=== PATIENT | female | born 2005 | race Caucasian/White ===

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

== ENCOUNTER 2024-02-11 10:56 | Emergency (ER) | payer OTHER, SELFPAY ==
[2024-02-11 11:22] VITALS: BP 101/60; PULSE 113; RESP 20; TEMP 36.9; O2SAT 100
--- NOTE | 2024-02-11 11:35 | ED.GENADULT ---
HPI - General Adult General Chief complaint: Upper Respiratory Infection Stated complaint: congested,throat pain,bodyaches Time Seen by Provider: 02/11/24 11:35 Source: patient Mode of arrival: ambulatory Limitations: no limitations History of Present Illness HPI narrative: 18-year-old female patient presents to the [facility] with complaints of cold symptoms for the past 2 days. Patient states she has had a slight irritation to the throat, a lot of congestion and drainage. Denies any chest pain or shortness of breath. Denies any coughing. Denies any abdominal pain, nausea, vomiting or diarrhea. Patient states she has taken [id number] ibuprofen for her symptoms. Related Data Home Medications Medication Instructions Recorded Confirmed Control Pills 1 tablet PO DAILY 09/09/23 09/09/23 hydroxyzine HCl 10 mg tablet mg 02/11/24 Allergies Allergy/AdvReac Type Severity Reaction Status Date / Time No Known Allergies Allergy Verified 09/09/23 18:43 Review of Systems Review of Systems: CONSTITUTIONAL: Denies fever, positive chills, or sweats. EYES: Denies visual changes, redness, or discharge. ENT: Positive rhinorrhea, congestion, sore throat, denies otalgia. CARDIOVASCULAR: Denies chest pain, palpitations, or edema. RESPIRATORY: Denies cough or dyspnea. GASTROINTESTINAL: Denies abdominal pain, nausea, vomiting, or diarrhea. GENITOURINARY: Denies dysuria or hematuria. SKIN: Denies rash or itching. MUSCULOSKELETAL: Denies back pain, joint pain, or myalgia. NEUROLOGIC: Denies headache, numbness, or weakness. PSYCHIATRIC: Denies anxiety or depression. PMFSH Past Medical History Medical History Anxiety and depression COVID-19 Surgical History Surgical History No significant past surgical history Social History Social History Gender identity (if verbalized by the patient): Female Comments At the time of my signature I agree with nursing past medical history, surgical, social, and family history. There is no relevant family history pertinent to the presenting complaint. Exam Narrative: GENERAL: Well-appearing, well-nourished, and in no acute distress. HEAD: Normocephalic, atraumatic. EYES: PERRLA and EOMI. ENT: Nares with erythema edema noted bilaterally, no rhinorrhea or epistaxis. Mucous membranes moist. Posterior pharynx with no erythema, tonsillar enlargement, exudates or lesions present. Bilateral TMs are clear no erythema or foreign bodies the canal. NECK: Supple. No lymphadenopathy CHEST: Clear to auscultation. No respiratory distress. HEART: Regular rate and rhythm. No murmur heard. Normal peripheral pulses. ABDOMEN: Soft, nontender, nondistended, normal active bowel sounds. EXTREMITIES: Normal range of motion. No edema. SKIN: Warm, dry, no rash. NEURO: No focal deficits. Alert and oriented x3. Course Course Level of Care: Express Care Visit Vital Signs Vital signs: Vital Signs Temperature 36.9 C 02/11/24 11:22 Pulse Rate 113 H 02/11/24 11:22 Respiratory Rate 20 02/11/24 11:22 Blood Pressure 101/60 02/11/24 11:22 Pulse Oximetry 100 02/11/24 11:22 Oxygen Delivery Room Air 02/11/24 11:22 Temperature 36.9 C 02/11/24 11:22 Pulse Rate 113 H 02/11/24 11:22 Respiratory Rate 20 02/11/24 11:22 Blood Pressure 101/60 02/11/24 11:22 Pulse Oximetry 100 02/11/24 11:22 Oxygen Delivery Room Air 02/11/24 11:22 Vital signs reviewed Medical Decision Making MDM Narrative Medical decision making narrative: Discussed patient that her point of care swabs for influenza COVID and strep were all negative today we will send out the. Strep swab to the lab for a culture. Discussed with patient that if the culture does come back positive we will call her in antibiotics at that time. Disc
[2024-02-11 11:49] LABS: EDINFLUASCREEN Negative; EDINFLUBSCREEN Negative; EDSTREPNEGPOS1 Presumptive Negative
== END 2024-02-11 11:52 | disposition home or self-care (01) ==
PROVIDERS: Emergency Provider Nurse Practitioner Family
DX: J06.9 Acute upper respiratory infection, unspecified (principal); Z86.16 Personal history of COVID-19; Z20.822 Contact with and (suspected) exposure to COVID-19
CPT/HCPCS: 87081; 87426; 87804; 87880; 99213; G0463

== ENCOUNTER 2024-04-19 09:32 | Emergency (ER) | payer OTHER, SELFPAY ==
[2024-04-19 09:41] VITALS: BP 104/73; PULSE 105; RESP 16; TEMP 37.1; O2SAT 100
--- NOTE | 2024-04-19 10:12 | ED.ABDPAIN ---
HPI - Abdominal Pain General Chief Complaint: Abdominal Pain Stated Complaint: Lower Abdomen Pain Time Seen by Provider: 04/19/24 10:13 Source: patient Mode of arrival: ambulatory Limitations: no limitations History of Present Illness HPI narrative: 19-year-old female presents with complaint, pain with urination for 2-3 days. Patient reports right lower quadrant abdominal pain starting Last night. Denies urinary frequency, urgency. Reports right lower abdominal pain resolved today. No concern for STI. Patient gets Depo shot, does not have monthly periods. Denies concern for . All systems reviewed and negative except as noted above. Related Data Home Medications Medication Instructions Recorded Confirmed hydroxyzine HCl 25 mg tablet 25 mg PO TID PRN Anxiety 04/19/24 04/19/24 medroxyprogesterone 150 mg/mL 150 mg IM [id number] 04/19/24 04/19/24 intramuscular syringe Allergies Allergy/AdvReac Type Severity Reaction Status Date / Time No Known Allergies Allergy Verified 04/19/24 09:43 Review of Systems Review of Systems: CONSTITUTIONAL: Denies fever, chills, or sweats. EYES: Denies visual changes, redness, or discharge. ENT: Denies rhinorrhea, congestion, sore throat, or otalgia. CARDIOVASCULAR: Denies chest pain, palpitations, or edema. RESPIRATORY: Denies cough or dyspnea. GASTROINTESTINAL: Reports right lower abdominal pain, nausea. Denies vomiting, or diarrhea. GENITOURINARY: Denies dysuria or hematuria. SKIN: Denies rash or itching. MUSCULOSKELETAL: Denies back pain, joint pain, or myalgia. NEUROLOGIC: Denies headache, numbness, or weakness. PSYCHIATRIC: Denies anxiety or depression. All other systems reviewed are negative, except as documented in HPI. [facility] Past Medical History Medical History Anxiety and depression COVID-19 Surgical History Surgical History No significant past surgical history Social History Social History Gender identity (if verbalized by the patient): Female Comments At time of signature, agree with nursing past medical, surgical, social and family history. There is no relevant family history pertinent to the presenting complaint. Exam Narrative: GENERAL: This is a well-nourished, well-developed patient, in no apparent distress. HEAD: normocephalic, atraumatic. EYES: PERRL. Sclera clear/white. Vision is grossly intact. EARS: External ears normal NOSE: External nose normal NECK: Neck supple, non-tender without lymphadenopathy, masses or thyromegaly. CARDIOVASCULAR: Regular rate and rhythm without murmurs, gallops, or rubs. RESPIRATORY: Clear to auscultation. Breath sounds equal bilaterally. No wheezes, rales, or rhonchi. GASTROINTESTINAL: Abdomen soft, non-tender, nondistended. Bowel sounds are active. No hepato-splenomegaly, or palpable masses. No guarding. SKIN: warm, Dry, intact with no suspicious lesions or rash, good texture and turgor. NEURO: awake, alert, and oriented to person, place and time. There were no obvious focal neurologic abnormalities. EXTREMITIES: No joint tenderness, effusion, or edema noted. Course Course Level of Care: Express Care Visit Vital Signs Vital signs: Vital Signs Temperature 37.1 C 04/19/24 09:41 Pulse Rate 105 H 04/19/24 09:41 Respiratory Rate 16 04/19/24 09:41 Blood Pressure 104/73 04/19/24 09:41 Pulse Oximetry 100 04/19/24 09:41 Oxygen Delivery Room Air 04/19/24 09:41 Temperature 37.1 C 04/19/24 09:41 Pulse Rate 105 H 04/19/24 09:41 Respiratory Rate 16 04/19/24 09:41 Blood Pressure 104/73 04/19/24 09:41 Pulse Oximetry 100 04/19/24 09:41 Oxygen Delivery Room Air 04/19/24 09:41 reviewed MDM - Abdominal Pain MDM Narrative Medical decision making narrative: Patient is aware of diagnos
[2024-04-19 10:36] LABS: EDUAAPPEAR Clear; EDUABILI Negative (Negative); EDUABLOOD Trace (Negative); EDUACOLOR1 Yellow; EDUAGLUCOSE Negative (Negative); EDUAKETONE Negative (Negative); EDUALEUKO 1+ (Negative); EDUANITRATE Negative (Negative); EDUAPROTEIN Negative (Negative); EDUAUROBILI 0.2
== END 2024-04-19 11:12 | disposition home or self-care (01) ==
PROVIDERS: Emergency Provider Nurse Practitioner Family
DX: N39.0 Urinary tract infection, site not specified (principal); F41.9 Anxiety disorder, unspecified; Z86.16 Personal history of COVID-19
CPT/HCPCS: 81003; 87086; 87088; 99213; G0463

== ENCOUNTER 2025-01-22 10:28 | Emergency (ER) | payer OTHER, SELFPAY ==
--- NOTE | ~2025-01-22 | XR_ITS ---
EXAM/PROCEDURE: XR chest 2V - 01/22/2025 11:45 CDT HISTORY: 19 years old Female with SOA TECHNIQUE: Two view(s) of the chest. COMPARISON: None available. FINDINGS: LUNGS/ PLEURA: No focal consolidation. No appreciable pneumothorax or large pleural effusion. HEART/ MEDIASTINUM: Heart appears normal in size. BONES: No acute osseous abnormality. OTHER: Visualized upper abdomen is unremarkable. IMPRESSION: No acute process. Reviewed, dictated and finalized at location A. IMPRESSION: No acute process.
[2025-01-22 10:32] VITALS: BP 116/80; PULSE 85; RESP 18; TEMP 36.8; O2SAT 100
[2025-01-22] MEDS: SODIUM CHLORIDE 0.9% IV 1,000 ML 999 ML IV CONT (11:05)
[2025-01-22] MEDS: ONDANSETRON INJ 4 MG/2 ML VIAL IV PUSH (11:05)
[2025-01-22 11:14] LABS: Basophils Absolute Auto 0.1 K/mm3 (0.0-0.1); Basophils Percent Auto 0.7 % (0.2-1.2); Eosinophils Percent Auto 0.2 % (0-4.4); Hematocrit 38.5 % (37.0-47.0); Hemoglobin 13.3 g/dL (12.0-15.0); Immature Granulocyte Absolute 0.02 K/mm3 (0.00-0.031); Immature Granulocyte Percent A 0.2 % (0-0.5); Lymphocytes Absolute Auto 1.62 K/mm3 (0.9-3.2); Lymphocytes Percent Auto 18.9 % (18.3-44.2); Mean Corpuscular HGB Conc 34.5 g/dl (32-36); Mean Corpuscular Hemoglobin 31.3 pg (26-34); Mean Corpuscular Volume 90.6 fl (80-100); Mean Platelet Volume 9.1 fl (7.4-10.4); Monocytes Absolute Auto 0.5 K/mm3 (0.1-0.6); Monocytes Percent Auto 6.2 % (2.6-8.5); Neutrophils Absolute Auto 6.3 K/mm3 (1.3-6.7); Neutrophils Percent Auto 73.8 % (45.5-73.1); Platelet Count Result 286 k/mm3 (150-375); Red Blood Count 4.25 M/mm3 (4.2-5.4); Red Cell Distribution Width 12.3 % (11.5-14.5); White Blood Count 8.6 K/mm3 (4.5-10.0)
[2025-01-22 11:18] LABS: Add Urine Microscopic? NO; Appearance Urine Clear (Clear); Bilirubin Urine Negative (Negative); Blood Urine Negative (Negative); Color Urine Yellow (Yellow); Glucose Urine UA Negative (Negative); Ketones Urine 2+ mg/dL (Negative); Leukocyte Esterase Ur Negative LEU/UL (Negative); Nitrate Urine Negative (Negative); Protein Urine Negative (Negative); Specific Grav Ur 1.017 (1.001-1.035)
[2025-01-22 11:25] LABS: Alanine Aminotransferase 18 U/L (6-35); Albumin Level 4.4 g/dL (3.5-5.1); Alkaline Phosphatase 108 U/L (38-126); Anion Gap 13 mmol/L (4-12); Aspartate Amino Transferase 24 U/L (14-36); Bilirubin,Total 0.7 mg/dL (0.2-1.3); Blood Urea Nitrogen 8 mg/dL (7-17); Calcium 10.4 mg/dL (8.4-10.2); Carbon Dioxide 17 mmol/L (22-30); Chloride 112 mmol/L (98-107); Estimated CRCL calculation 91 ml/min; Estimated Glomerular Filt Rate > 60; Glucose 109 mg/dL (65-110); Lipase 36 U/L (23-300); Potassium 3.4 mmol/L (3.4-5.0); Sodium 142 mmol/L (137-145)
[2025-01-22] MEDS: hydrOXYzine HCL 25 MG TABLET PO (11:44)
--- NOTE | 2025-01-22 12:14 | ED_ITS ---
HPI - General Adult General Chief complaint: Anxiety Stated complaint: anxiety/dehydration Time Seen by Provider: 01/22/25 10:28 History of Present Illness HPI narrative: Patient is a 19-year-old female who presents ER with anxiousness. Patient had been smoking some marijuana last night and had adverse reaction or she is vomiting regularly. She again had some similar feeling this morning and thought she should come to the emergency room. She tried taking hydroxyzine without significant improvement. She has no chest pain at this time. No abdominal discomfort. She feels like she is dehydrated. No urinary symptoms. Related Data Home Medications ?Medication ?Instructions ?Recorded ?Confirmed ?Last Taken ?Type hydroxyzine HCl 25 mg tablet 25 mg PO TID PRN Anxiety 04/19/24 04/19/24 Unknown History medroxyprogesterone 150 mg/mL 150 mg IM [id number] 04/19/24 04/19/24 Unknown History intramuscular syringe Allergies Allergy/AdvReac Type Severity Reaction Status Date / Time No Known Allergies Allergy Unverified 01/22/25 10:29 Review of Systems 2 Review of Systems: All systems reviewed & are unremarkable except as noted in HPI and below Constitutional: Constitutional: Reports no additional constitutional complaints ENT: Reports system reviewed and no additional complaints, except as documented Cardiovascular: Cardiovascular: Reports no additional cardiovascular complaints Respiratory: Respiratory: Reports no additional respiratory complaints Genitourinary: Genitourinary: Reports no additional female genitourinary complaints Musculoskeletal: Musculoskeletal: Reports no additional musculoskeletal complaints Integumentary/Breasts: Skin/Breast: Reports system reviewed and no additional complaints, except as docu PMFSH Past Medical History Medical History Anxiety and depression COVID-19 Surgical History Surgical History No significant past surgical history Social History Social History Substance use type: marijuana Gender identity (if verbalized by the patient): Female Exam 2 Narrative: GENERAL: Well-appearing, well-nourished, and in no acute distress. HEAD: Normocephalic, atraumatic. ENT: Mucous membranes moist. CHEST: Clear to auscultation. No respiratory distress. HEART: Regular rate and rhythm. Normal peripheral pulses. ABDOMEN: Soft, nontender, nondistended. EXTREMITIES: Normal range of motion. No edema. SKIN: Warm, dry, no rash. NEURO: Alert and oriented x3. PSYCH: Normal mood and affect. Course Course Emergency Course: Labs with 2+ ketones, normal glucose and will sodium/potassium. White count hemoglobin normal. Has receive some hydroxyzine here but still feels anxious and occasionally nauseous. No vertigo. 1339: Patient feels much better after Phenergan and Ativan. Appropriate for discharge home. Vital Signs Vital signs: Vital Signs Temperature 98.3 F 01/22/25 10:32 Pulse Rate 85 01/22/25 10:32 Respiratory Rate 18 01/22/25 10:32 Blood Pressure 116/80 01/22/25 10:32 Pulse Oximetry 100 01/22/25 10:32 Oxygen Delivery Room Air 01/22/25 10:32 Temperature 98.3 F 01/22/25 10:32 Pulse Rate 85 01/22/25 10:32 Respiratory Rate 18 01/22/25 10:32 Blood Pressure 116/80 01/22/25 10:32 Pulse Oximetry 100 01/22/25 10:32 Oxygen Delivery Room Air 01/22/25 10:32 Medical Decision Making Vital Signs Vital Signs: Vital Signs Temperature 98.3 F 01/22/25 10:32 Pulse Rate 85 01/22/25 10:32 Respiratory Rate 18 01/22/25 10:32 Blood Pressure 116/80 01/22/25 10:32 Pulse Oximetry 100 01/22/25 10:32 Oxygen Delivery Room Air 01/22/25 10:32 Temperature 98.3 F 01/22/25 10:32 Pulse Rate 85 01/22/25 10:32 Respiratory Rate 18 01/22/25 10:32 Blood Pressure 116/80 01/22/25 10:32 Pulse Oximetry 100 01/22/25 10:32 Oxygen Delivery Room Air 01/22/25 10:32 Lab Data 01/22/25 10:59 01/22/25 10:59 Labs: Lab Results 01/22/25 Range/Units 10:59 WBC 8.6 (4.5-10.0) K/mm3 RBC 4.25 (4.2-5.4) M/mm3 Hgb 13.3 (12.0-15.0) g/dL Hct 38.5 (37.0-47.0) % MCV 90.6 (80-100) fl MCH 31.3 (26-34) pg MCHC 34.5 (32-36) g/dl RDW 12.3 (11.5-14.5) % Plt Count 286 (150-375) k/mm3 MPV 9.1 (7.4-10.4) fl Immature Gran % (Auto) 0.2 (0-0.5) % Neut % (Auto) 73.8 H (45.5-73.1) % Lymph % (Auto) 18.9 (18.3-44.2) % [place] % (Auto) 6.2 (2.6-8.5) % Eos % (Auto) 0.2 (0-4.4) % Baso % (Auto) 0.7 (0.2-1.2) % Lymph # (Auto) 1.62 (0.9-3.2) K/mm3 [place] # (Auto) 0.5 (0.1-0.6) K/mm3 Eos # (Auto) 0.0 (0-0.3) K/mm3 Baso # (Auto) 0.1 (0.0-0.1) K/mm3 Abs Immat Gran (auto) 0.02 (0.00-0.031) K/mm3 Absolute Neuts (auto) 6.3 (1.3-6.7) K/mm3 Absolute Nucleated RBC 0.000 (0.0-0.012) K/mm3 Nucleated RBC % 0.0 (0.0-0.2) % Sodium 142 (137-145) mmol/L Potassium 3.4 (3.4-5.0) mmol/L Chloride 112 H (98-107) mmol/L Carbon Dioxide 17 L (22-30) mmol/L Anion Gap 13 H (4-12) mmol/L BUN 8 (7-17) mg/dL Creatinine 0.67 L (0.7-1.0) mg/dL Estim Creat Clear Calc 91 ml/min Estimated GFR > 60 (59 - ) Glucose 109 (65-110) mg/dL Calcium 10.4 H (8.4-10.2) mg/dL Magnesium 2.0 (1.6-2.3) mg/dL Total Bilirubin 0.7 (0.2-1.3) mg/dL AST 24 (14-36) U/L ALT 18 (6-35) U/L Alkaline Phosphatase 108 (38-126) U/L Total Protein 7.0 (6.3-8.2) g/dL Albumin 4.4 (3.5-5.1) g/dL Lipase 36 (23-300) U/L Urine Color Yellow (Yellow) Urine Appearance Clear (Clear) Urine pH 7.0 (5.0-9.0) Ur Specific [place] 1.017 (1.001-1.035) Urine Protein Negative (Negative) mg/dL Urine Glucose (UA) Negative (Negative) mg/dL Urine Ketones 2+ H (Negative) mg/dL Ur Blood (Man) Negative (Negative) Urine Nitrate Negative (Negative) Urine Bilirubin Negative (Negative) Urine Urobilinogen 1.0 (<2.0) mg/dL Leukocyte Esterase Rfl Negative (Negative) NAOMI/UL Urine Opiates Screen Negative (Negative) Urine Methadone Screen Negative (Negative) Ur Barbiturates Screen Negative (Negative) Ur Phencyclidine Scrn Negative (Negative) Ur Amphetamine Screen Negative (Negative) U Benzodiazepines Scrn Negative (Negative) Urine Cocaine Screen Negative (Negative) U Cannabinoids Screen Positive A (Negative) Imaging Data Radiologist's impression: ITS Impressions Chest X-Ray 01/22/25 12:05 IMPRESSION: No acute process. Discharge Plan Discharge Clinical Impression: Acute anxiety, Nausea & vomiting Patient Disposition: Home Condition: Stable Instructions: Anxiety (ED) Additional Instructions: Please return to the emergency department if you develop severe and persistent chest pain, difficulty breathing, dizziness, leg swelling or if you are coughing up blood as these can be signs of a medical emergency. Please call your doctor for a follow up appointment to determine the need for further testing. Patient Language: Czech Prescriptions: No Action hydroxyzine HCl 25 mg tablet 25 mg PO TID PRN (Reason: Anxiety) medroxyprogesterone 150 mg/mL syringe 150 mg IM [id number] sulfamethoxazole-trimethoprim [Bactrim DS] 800-160 mg tablet 1 tablet PO Q12H 3 Days Qty: 6 0RF Follow-up/Referrals: [facility] [Primary Care Provider] - 1 Week
[2025-01-22] MEDS: PROMETHAZINE HCL 25 MG/ML AMPUL 12.5 MG IV PUSH (12:33)
[2025-01-22] MEDS: LORazepam INJ (*CRX) 2 MG/ML VIAL 0.5 MG IV PUSH (12:33)
[2025-01-22 13:16] LABS: Amphetamine Screen Urine Negative (Negative); Barbiturate Screen Urine Negative (Negative); Benzodiazepines Screen Urine Negative (Negative); Cannabinoid Screen Urine Positive (Negative); Cocaine Screen Urine Negative (Negative); Methadone Screen Urine Negative (Negative); Opiate Screen Urine Negative (Negative); Phencyclidine Screen Urine Negative (Negative)
[2025-01-22 13:56] VITALS: BP 130/72; PULSE 68; RESP 14; O2SAT 99
== END 2025-01-22 13:58 | disposition home or self-care (01) ==
PROVIDERS: Emergency Provider Emergency Medicine
DX: F41.9 Anxiety disorder, unspecified (principal); R11.2 Nausea with vomiting, unspecified; Z86.16 Personal history of COVID-19
CPT/HCPCS: 36415; 71046; 80053; 80307; 81003; 83690; 83735; 85025; 96361; 96374; 96375; 99284; A9270; J2060; J2405; J2550; J7030

== ENCOUNTER 2025-05-31 11:00 | Emergency (ER) | payer OTHER, SELFPAY ==
--- OUTSIDE RECORDS SUMMARY | 2014-08-15 08:23 | XMS_ITS | Continuity of Care Document ---
Author Organization [facility] Address [address] [place] [address] Phone Care Team Providers Care Power Lineworker Name Role Phone Unavailable Unavailable Unavailable Allergies, Adverse Reactions, Alerts Substance Reaction Status Criticality No Known allergies Medications Medication Instructions Dosage Effective Dates (start - stop) Status Comments Focalin 10 mg tablet take one tab (10mg) by mouth in am and 1/2 (5mg) by mouth in pm - Active Procedures Procedure Date Psychotherapy, 45 Min W/pt And Family Me mber - Psychologists PERIODIC COMPREHENSIVE PREVENTIVE MED RE E/M; ESTABLISHED PATIENT; 12-08 FAMILY PSYCHOTHERAPY (CONJOI NT PSYCHOTHERAPY) (W/PATIENT PRESENT) - Psychologist Psychotherapy, 45 Min W/pt And Family Me mber - Psychologists Psychotherapy, 45 Min W/pt And Family Me mber - Psychologists FAMILY PSYCHOTHERAPY (CONJOI NT PSYCHOTHERAPY) (W/PATIENT PRESENT) - Psychologist FAMILY PSYCHOTHERAPY (CONJOI NT PSYCHOTHERAPY) (W/PATIENT PRESENT) - Psychologist Psychiatric Diagnostic Evaluation Psychiatric Diagnostic Evaluation OFFICE/OUTPATIENT VISIT, NEW Advance Directives Directive Yes / No Effective Date File Name No Information Encounters Encounter Description Practice Location Reason(s) For Visit Diagnoses Date Provider Providers Copied on Encounter [facility], [address], [place], [place], [id number] , [place] tel:[phone] [facility] No Information 5 No Information [facility], [address], [place], [place], [address] , [place] tel: [phone] [facility] No Information 4 No Information Psychotherapy, 45 Min W/pt And Family Member - Psychologists Darline [facility], [address], [place], [place], [address] , [place] tel: [phone] [facility] No Information 4 No Information PERIODIC COMPREHENSIVE PREVENTIVE MED REE/M; ESTABLISHED PATIENT; 12-08 [facility], [address], [place], [place], [address] , [place] tel: [phone] [facility] med refills (chief complaint) chapped lips (chief complaint) Routine or child health check 4 No Information FAMILY PSYCHOTHERAPY (CONJOINT PSYCHOTHERAPY) (W/PATIENT PRESENT) - Psychologist Darline [facility]man, [address], [place], [place], [address] , [place] tel: [phone] [facility] No Information 4 No Information Psychotherapy, 45 Min W/pt And Family Member - Psychologists Darline newman, [address], [place], [place], [address] , [place] tel: [phone] [facility] No Information 3 No Information Psychotherapy, 45 Min W/pt And Family Member - Psychologists Darline newman, [address], [place], [place], [address] , [place] tel: [phone] [facility] No Information 3 No Information FAMILY PSYCHOTHERAPY (CONJOINT PSYCHOTHERAPY) (W/PATIENT PRESENT) - Psychologist Darline newman, [address], [place], [place], [address] , [place] tel: [phone] [facility] No Information 3 No Information FAMILY PSYCHOTHERAPY (CONJOINT PSYCHOTHERAPY) (W/PATIENT PRESENT) - Psychologist Darline newman, [address], [place], [place], [address] , [place] tel: [phone] [facility] Unspecified hyperkinetic syndrome of childhoodGeneral ized anxiety disorder 3 No Information Psychiatric Diagnostic Evaluation Darline newman, [address], [place], [place], [address] , tel: [phone] [facility] ADHD (chief complaint) 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 3 No Information Psychiatric Diagnostic Evaluation [facility], [address], [place], [place], [address] , [place] tel: [phone] [facility] ADHD, peds (chief complaint) Unspecified nonpsychotic mental disorder 3 No Information OFFICE/OUTPATI ENT VISIT, NEW [facility], [address], [place], [place], [address] , [place] tel: [phone] [facility] c/o rf on meds per mom (chief complaint) ADHD (chief complaint) Routine or child health checkAttention deficit disorder of childhood with hyperactivityRou dagmar infant or child health check 3 No Information Family History Family Member Type Diagnosis Age At Onset No Information Immunizations Vaccine Date Status Comments Influenza virus vaccine, intranasal administered Source: New Immuniza tion Record flu (split) (6-35 mos) administered Sourc e: New Immunization Record varicella administered Source: New Imm unization Record MMR administered Source: New Imm unization Record polio, inactivated (IPV) administered Katerina rce: New Immunization Record DTaP administered Source: New Imm unization Record hep A (ped/adol, 2 dose) administered Katerina rce: New Immunization Record hep A (ped/adol, 2 dose) administered Katerina rce: New Immunization Record pneumo (under 5) (PCV7) administered Sour ce: New Immunization Record varicella administered Source: New Imm unization Record MMR administered Source: New Imm unization Record Hib (PRP-OMP) administered Source: New Im munization Record hep B (ped/adol, 3 dose) administered Katerina rce: New Immunization Record DTaP administered Source: New Imm unization Record pneumo (under 5) (PCV7) administered Sour ce: New Immunization Record polio, inactivated (IPV) administered Katerina rce: New Immunization Record DTaP administered Source: New Imm unization Record pneumo (under 5) (PCV7) administered Sour ce: New Immunization Record Hib (PRP-OMP) administered Source: New Im munization Record hep B (ped/adol, 3 dose) administered Katerina rce: New Immunization Record polio, inactivated (IPV) administered Katerina rce: New Immunization Record DTaP administered Source: New Imm unization Record pneumo (under 5) (PCV7) administered Sour ce: New Immunization Record Hib (PRP-OMP) administered Source: New Im munization Record hep B (ped/adol, 3 dose) administered Katerina rce: New Immunization Record polio, inactivated (IPV) administered Katerina rce: New Immunization Record DTaP administered Source: New Imm unization Record Payers Payer name Insurance type Covered democrat ID Authoriza tion(s) [facility] [id number] Social History Type Description Quantity Date Captured Comments Sex Female Smoking Status No Information Chief Complaint And Reason For Visit No Information Reason For Referral Reason For Referral No Information Plan Of Treatment Date Type Action Status Goal H&P. Due on due History Of Present Illness Encounter Date Complaint History Of Prese nt Illness No Information Functional Status Date Functional Assessmen t No Information Instructions Date Instruction Additional Infor mation No Information Assessments Type Assessment Date No Information Patient Care Teams Name Effective Dates (start - stop) Status Members No Information
--- OUTSIDE RECORDS SUMMARY | 2014-08-15 08:23 | XMS_ITS | Continuity of Care Document ---
Author Organization [facility] Address [address] [place] [address] Phone Care Team Providers Care Absence Management Consultant Name Role Phone Unavailable Unavailable Unavailable Allergies, [...] Diagnoses Date Provider Providers Copied on Encounter [facility], [address], [place], [place], [address] , [place] tel:[phone] [facility] No Information 5 No Information [facility], [address], [place], [place], [address] , [place] tel: [phone] [facility] No Information 4 No Information Psychotherapy, 45 Min W/pt And Family Member - Psychologists Darline newman, [address], [place], [place], [address] , [place] tel: [phone] [facility] No Information 4 No Information PERIODIC COMPREHENSIVE PREVENTIVE MED REE/M; ESTABLISHED PATIENT; 12-08 Darline newman, [address], [place], [place], [address] , [place] tel: [phone] [facility] med refills (chief complaint) chapped lips (chief complaint) Routine or child health check 4 No Information FAMILY PSYCHOTHERAPY (CONJOINT PSYCHOTHERAPY) (W/PATIENT PRESENT) - Psychologist Darline [facility]man, [address], [place], [place], [address] , [place] tel: [phone] [facility] No Information 4 No Information Psychotherapy, 45 Min W/pt And Family Member - Psychologists [facility], [address], [place], [place], [address] , [place] tel: [phone] [facility] No Information 3 No Information Psychotherapy, 45 Min W/pt And Family Member - Psychologists [facility], [address], [place], [place], [address] , [place] tel: [phone] [facility] No Information 3 No Information FAMILY PSYCHOTHERAPY (CONJOINT PSYCHOTHERAPY) (W/PATIENT PRESENT) - Psychologist [facility], [address], [place], [place], [address] , [place] tel: [phone] [facility] No Information 3 No Information FAMILY PSYCHOTHERAPY (CONJOINT PSYCHOTHERAPY) (W/PATIENT PRESENT) - Psychologist Darline [facility]man, [address], [place], [place], [address] , [place] tel: [phone] [facility] Unspecified hyperkinetic syndrome of childhoodGeneral ized anxiety disorder 3 No Information Psychiatric Diagnostic Evaluation [facility], [address], [place], [place], [address] , tel: [phone] [facility] ADHD (chief complaint) 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 3 No Information Psychiatric Diagnostic Evaluation [facility], [address], [place], [place], [address] , [place] tel: [phone] [facility] ADHD, peds (chief complaint) Unspecified nonpsychotic mental disorder 3 No Information OFFICE/OUTPATI ENT VISIT, NEW [facility], [address], [place], [place], [address] , [place] tel: [phone] [facility] c/o rf on meds per mom (chief complaint) ADHD (chief complaint) Routine or child health checkAttention deficit disorder of childhood with hyperactivityRou dagamr infant or child health check 3 No [...] Insurance type Covered democrat ID Authoriza tion(s) [facility] [id number] Social History Type Description Quantity Date Captured [...]
--- NOTE | ~2025-05-31 | US_ITS ---
EXAMINATION: US OB <= 14 weeks fetus, 05/31/2025 12:25 CDT HISTORY: Ectopic Comparison: None Technique: Erickson-scale sonographic images were obtained Findings: The uterus is anteverted 10.6 x 6 x 8.1 cm with a single live intrauterine corresponding to 10 weeks and 0 days, yolk sac identified, heart rate 165 Right ovary 2.8 x 1.6 x 1.9 cm, no adnexal mass, normal flow. The left ovary was not identified No free fluid IMPRESSION: Single live intrauterine Reviewed, dictated and finalized at location P. IMPRESSION: Single live intrauterine
--- OUTSIDE RECORDS SUMMARY | 2025-05-31 11:03 | XMS_ITS | Encounter Summary ---
Author Organization [facility] Healthcare Address [address] [place] [address] Care Team Providers Care Police Magistrate Name Role Phone Evert De Luna MD Primary Care Provider [phone] Encounter Details Date Type Department Care Team (Late st Contact Info) Description 05/19/2025 Results Follow-Up [facility] at [address] [address] Francy Peres MD [address] [place], [place] [id number] Ob Under 14 Weeks Social History Tobacco Use Types Packs/Day Years Used Date Smoking Tobacco: Never Assessed PHQ-2 Answer Date Recorded PHQ-2 Total Score (If total score is 3 or more points, staff should administer the PHQ-9) 6 05/13/2025 PHQ-9 Answer Date Recorded PHQ-9 Total Score 19 05/13/2025 Ellsworth Depression Scale Answer Date Recorded Ellsworth Depression Scale Total 17 05/13/2025 The thought of harming myself has occurred to me . Never 05/13/2025 Estimated Date of Delivery Comme nts Yes 12/20/2025 Based on last me nstrual period of 03/15/2025 Sex and Gender Information Value Date Recorded Sex Assigned at Not on file Legal Sex Female 11:29 AM [employer] Gender Identity Not on file Sexual Orientation Not on file documented as of this encounter Miscellaneous Notes * Result Encounter Note - Ameena Muller MA - 05/19/2025 1:27 PM CDT Dating Update: USG 05/19/2025, IUP 8.2 documented in this encounter Plan of Treatment Not on file documented as of this encounter Visit Diagnoses Not on filedocumented in this encounter Care Teams Police Magistrate Relationship Specialty Start Date End Date Evert De Luna MD [address] [place] [address] PCP - General Pediatrics 08/28/21 documented as of this encounter
--- OUTSIDE RECORDS SUMMARY | 2025-05-31 11:03 | XMS_ITS | Data Portability ---
Author Organization [facility] [place] Address [address] [place] [address] Care Team Providers Care Case Picker Name Role Phone ANNAMARIA WEISS Primary Care Provider Assessment No assessment recorded. Plan of Treatment Reminders Order Date Submit Date Provider Last Modified By Organization Details Last Modified Time Details Appointments None recorded . Lab None recorded . Referral None recorded . Procedures None recorded . Surgeries None recorded . Imaging None recorded . Medication Orders Depo-Pro vera 150 mg/mL intramus cular syringe 2022 023 [facility][id number], [address], [place], [id number], 3 17:54:31 Depo-Pro vera 150 mg/mL intramus cular syringe 2021 022 [facility] #[id number], [address] [facility], [place], [place], [id number], 3 15:30:47 Depo-Pro vera 150 mg/mL intramus cular syringe 2021 022 [facility] #[id number], [address] [facility], [place], [place], [id number], 3 15:30:47 Depo-Pro vera 150 mg/mL intramus cular syringe 2021 022 [facility] #[id number], [address], [place], [id number], 15:30:47 Patient TargetsNo targets recorded. Patient InstructionsNo instructions recorded. Reason for Referral None Reported. Results Created Date Observation Date Name Description Value Unit Range Abnormal Flag Note LastModifiedBy Organization Detail LastModifiedTime 08/31/1908/31/2022 CT/GC AND TRICH OMONA S VAGIN JESSICA (RRNA ), SWAB chlamydia trachomatis, PCR Negati ve negati ve Not Available [facility] (Lab) [address] [facility], [place], [address], 09/01/2022 14:16:50 08/31/19 23 08/31/2022 CT/GC AND TRICH OMONA S VAGIN JESSICA (RRNA ), SWAB neisseria gonorrhoeae, PCR Negati ve negati ve Not Available [facility] (Lab) [address] [facility], [place], [address], 09/01/2022 14:16:50 08/31/19 23 08/31/2022 CT/GC AND TRICH OMONA S VAGIN JESSICA (RRNA ), SWAB trichomonas vaginalis ribosomal RNA (rrna) Negati ve negati ve Not Available [facility] (Lab) [address] [facility], [place], [address], 09/01/2022 14:16:50 08/31/19 23 08/31/2022 VAGIN ITIS/ VAGIN OSIS, DNA PROBE karla sp. detection, direct probe Negati ve negati ve Not Available [facility] (Lab) [address] [place], [address], 09/01/2022 14:16:50 08/31/19 23 08/31/2022 VAGIN ITIS/ VAGIN OSIS, DNA PROBE gardnerella vag. detection, direct probe Positi ve negati ve abnormal Not Available [facility] (Lab) [address] [place], [address], 09/01/2022 14:16:50 08/31/19 23 08/31/2022 VAGIN ITIS/ VAGIN OSIS, DNA PROBE trichomonas vag. detection, direct probe Negati ve negati ve Not Available [facility] (Lab) [address], [place], [address], 09/01/2022 14:16:50 Result Notes None recorded. Medical Equipment None Reported. Allergies No known drug allergies Medications Name Sig Start Date Stop Date Status Note LastModified by Organization Details LastModified Time cetirizine 10 mg tablet TK 1 T PO QD 08/31 completed Not Available Not Available Not Available azithromyci n 250 mg tablet TK 2 TS PO ON DAY 1, THEN TK 1 T PO D FOR 4 DAYS DIRECTED 08/31 completed Not Available Not Available Not Available metronidazo le 0.75 % (37.5 mg/5 gram) vaginal gel INSERT 1 APPLICATO RFUL VAGINALLY EVERY DAY AT BEDTIME FOR 5 DAYS 10/13 completed Not Available Not Available Not Available sulfamethox azole 800 mg-trimetho prim 160 mg tablet TAKE 1 TABLET BY MOUTH EVERY 12 HOURS FOR 7 DAYS 04/19 completed Not Available Not Available Not Available Depo-Continuing Education Instructor a 150 mg/mL intramuscul ar suspension Inject 1 mL every 3 months by intramusc ular route. 2021 active Not Available Not Available Not Avai lable benzonatate 100 mg capsule TAKE ONE CAPSULE BY MOUTH EVERY 8 HOURS NEEDED FOR COUGH active Not Available Not Available No t Available cephalexin 500 mg capsule TAKE 1 CAPSULE BY MOUTH THREE TIMES DAILY 08/31 completed Not Available Not Available Not Available naproxen sodium 550 mg tablet TAKE 1 TABLET BY MOUTH EVERY 12 HOURS NEEDED FOR PAIN active Not Available Not Available No t Available fluoxetine 10 mg capsule TK 1 C PO Q NIGHT 08/31 completed Not Available Not Available Not Available ondansetron 4 mg disintegrat ing tablet DISSOLVE 1 TABLET ON THE TONGUE THREE TIMES DAILY NEEDED 08/31 completed Not Available Not Available Not Available fluticasone propionate 50 mcg/actuati on nasal spray,suspe nsion SPRAY ONCE IN EACH NOSTRIL D 08/31 completed Not Available Not Available Not Available amoxicillin 875 mg-potassiu m clavulanate 125 mg tablet 08/31 completed Not Available Not Available Not Available Depo-Continuing Education Instructor a 150 mg/mL intramuscul ar syringe Inject 1 mL every 3 months by intramusc ular route. 2022 active Not Available Not Available Not Avai lable ID NOW COVID-19 Test Kit USE 1 KIT TODAY DIRECTED - [id number] 08/31 completed Not Available Not Available Not Available Vitals Date Recorded Body weight Systolic And Diastolic Provider Name and Address Organization Details Last Updated DateTime 08/31/2022 66345.08 g 104/72 mm[Hg] Jennifer Mykel [facility] 08/31/2022 15:30:26 Social History Question Answer Notes LastModified by Organizat ion Details LastModified Time Tobacco Smoking Status Never Smoker Alysonnata woodard, [facility] 11/16/2020 14:27:01 Are You Blind Or Do You Have Difficulty Seeing? No Information not available 04/06/2021 What Is Your Level Of Caffeine Consumption? None Information not available 04/06/2021 Are You Deaf Or Do You Have Serious Difficulty Hearing? No Information not available 04/06/2021 What Type Of Diet Are You Following? REGULAR Information not available 04/06/2021 Do You Use Your Seat Belt Or Car Seat Routinely? Yes Information not available 04/06/2021 Do You Have Smoke And Carbon Monoxide Detectors In Your Home? Yes Information not available 04/06/2021 Do You Use Sunscreen Routinely? Yes Information not available 04/06/2021 Do You Have Difficulty Walking Or Climbing Stairs? No Information not available 08/31/2022 Sex: Unknown Functional Status Question Answer Note LastModified by Organizat ion Details LastModified Time Do you use any illicit or recreational drugs? No Information not available 04/06/2021 What is your level of alcohol consumption? None Information not available 04/06/2021 Are you able to walk independently without assistance or assistive devices? YESWOREST Information not available 04/06/2021 Are you able to care for yourself independently? Yes Information not available 08/31/2022 Do you have difficulty dressing, bathing, grooming, or toileting? No Information not available 08/31/2022 What is your exercise level? None Information not available 04/06/2021 Mental Status Question Answer Note LastModified by Organization D etails LastModified Time Do you feel stressed (tense, restless, nervous, or anxious, or unable to sleep at night)? [id number] Information not available 04/06/2021 Family History Relationship Description Onset Age of this Age Resolved Age Notes LastModified by Organization Details LastModified Time Father No current problems or disability [email or web address] Not available 11/16 14:26:57 Mother No current problems or disability Not available 11/16 14:26:57 Medical History Condition Response Allergies (Food, seasonal, environmental ) N Other N Breast Cancer N Drug/Latex Allergies/Reactions N Blood Transfusion N Dermatologic Disorders N Lung Disease N Defects or Inherited Disease N Breast Problem N Gestational Diabetes N Hematologic disorders N Anesthesia Complications N History of STI N Deep Vein Thrombosis N Polycystic ovary syndrome N Anxiety Disorder N Autoimmune disease N Arthritis N Infertility N Polyps N Acid Reflux (GERD) N History of abnormal pap N Cancer N Stroke N Varicosities N Neurologic/Epilepsy N Endometriosis N High Cholesterol N Headaches N Fibromyalgia N Kidney Disease N Heart Problems N Kidney or Bladder Problems N Thyroid Problems N GI Problems N Eating Disorder N Anemia N Art (IVF or FET) N Psychiatric Illness N Ovarian Cancer N Diabetes N Pulmonary (TB, Asthma) N Hepatitis/Liver Disease N No Past Medical History N Eczema N Urinary Tract Infection N Abuse/Domestic Violence N Asthma N Trauma/Violence N Depression/ depression N Heart Disease N Pre-Eclampsia N Hypertension N Osteoporosis N Thrombophilias N Gynecological History Statement/Question Response Flow Light Date of LMP 09/23/2022 STIs/STDs N HPV Vaccine Y Duration of Flow (days) 4 13 Current Control Method Depo-Continuing Education Instructor a Sexually Active? Y Menses Monthly N Age of first menstrual cycle 11 Date of Last Pap Smear Sexual Problems? N LMP Approximate Obstetrics History GPAL:G 0 P 0 0 0 0 Past Encounters Encounter ID Performer Location Encounter Start Date Encounter Closed Date Diagnosis/Indication Diagnosis SNOMED-CT Code Diagnosis ICD10 Code Diagnosis IMO Codes Diagnosis Note [id number] Annie Anderson CNM [place] [address] [address] 11/16/2020 14:20:03 11/16/2020 17:11:35 Contraception care management 565071322 Z30.9 Discussed all options. Pt would like depo provera. Discussed risks including delayed return to fertility, abnormal bleeding, loss of bone density, and weight gain. Pt would like to proceed with injection. She will call us on the first day of her cycle to schedule injection. Offered STD testing and pt declines. States she might do it when she returns for depo injection. [id number] Annie Anderson CNM [place] [address],[place] [address] 12/01/2020 14:52:30 12/02/2020 00:10:09 Contraception care management [id number] Z30.9 [id number] Pranav Anaya MD [place] [address],[place] [address] 02/26/2021 12:12:35 02/26/2021 12:35:27 Contraception care management [id number] Z30.9 [id number] Asha Gupta [facility] [address],[place] [address] 04/06/2021 10:56:34 04/06/2021 11:54:19 Furuncle of groin 10204050 L02.224 Trial of abx for ??swollen lymph-node in right groin vs a true cyst.RTO med check x 1-2wks.if feeling better can cancel.If returns and no improvemen t then we will consider STD screening despite no other sx's. Time spent in visit is a total of 15 mins with at least 50% of visit consisting of counseling and review of plan of care.Addit ional precaution karel measures were taken to minimize potential exposure to the Covid-19 virus during this patient s visit, including available hand clinical research technician upon arrive, temperatur e check and being asked a series of screening questions. All staff wore face coverings during this encounter, as well as provided additional cleaning and sanitizing of all surfaces, including counter-to ps, pens, chairs, door handles, light switches, etc, prior to and following the patient s visit. [id number] Asha Gupta [facility] [address],[place] [address] 05/19/2021 09:27:26 05/19/2021 16:57:54 Contraception care management 510820475 Z30.9 [id number] Asha Gupta [facility] [address],[place] [address] 08/20/2021 16:41:44 08/23/2021 12:30:42 Contraception care management [id number] Z30.9 test negative [id number] Z32.02 [id number] Asha Gupta [facility] [address],[place] [address] 11/05/2021 15:30:49 11/05/2021 16:49:44 Contraception care management [id number] Z30.9 [id number] Asha Gupta [facility] [address],[place] [address] 02/04/2022 15:29:48 02/04/2022 17:27:50 Contraception care management [id number] Z30.9 [id number] Asha Gupta [facility] [address],[place] [address] 04/27/2022 15:58:55 04/27/2022 18:50:50 Contraception care management [id number] Z30.9 [id number] Asha Gupta [facility] [address],[place] [address] 07/20/2022 16:37:54 07/20/2022 16:58:00 Contraception care [id number] Z30.40 [id number] Asha Gupta [facility] [address],[place] [address] 08/31/2022 15:18:55 08/31/2022 16:02:23 Vaginitis 82684450 N76.0 Z11.3 Testing sent [facility] swabsWill treat based on return of results. Time spent in visit is a total of 15 mins with at least 50% of visit consisting of counseling and review of plan of care.NOTE: Call Pt mom phone & ask for patient.If she is NOT there leave msg for pt to call back but DO NOT disclose tests done or test results. AFTER 3:30pm on wk is best time to call. [id number] BOBBY Serna [place] [address] [address] 10/13/2022 17:38:16 10/14/2022 10:12:32 Contraception care management [id number] Z30.9 Health Concerns Section Related Observation LastModified by Organization Detai ls LastModified Time None Recorded Concern Status LastModified by Organization Details LastModified Time None Recorded Advance Directives Directive None Recorded Payers Insurance Date Sequence Insurance Name Policy Number Policy Doty Covered Member ID Doty Member ID Guarantor Name 07/18/2022 1 [facility] (PP[facility]) [id number] Mattie Arthur [id number] 11/19/2021 PAYMENT PLAN 10/13/2022 1 [place] [facility] Cleo Mcpherson [id number] 09/12/2022 PAYMENT PLAN 10/13/2022 1 *SELF PAY* Notes Date Note Type Note Provider Name and Address Organization Details Recorded Time 08/31/2022 text/html ROS as noted in the HPI Patient is an 17yo white reproductive age female here today for vaginal odor.Got back together with ex-partner who slept with someone else.Wants STD screen.Increase in her d/c & +odor but neg itching/irritation . Neg pain of abd/pelvis/flankNe g urinary sx'sNeg GI sx'sNeg N/V/F/C/D BOBBY Adorno- [address], [place], [address], [facility] 08/31/2022 15:43:11 OBGyn Episode No OBEpisode recorded.
--- OUTSIDE RECORDS SUMMARY | 2025-05-31 11:03 | XMS_ITS | Clinical Summary ---
Author Organization [facility] ospital Address [address] [place] [address] Care Team Providers Care Applicator Sprayer Name Role Phone Evert De Luna MD Primary Care Provider [phone] Allergies No known active allergies Medications hydrOXYzine (ATARAX) 25 mg tablet TAKE 1 TABLET BY MOUTH THREE TIMES A DAY NEEDED FOR ANXIETY 01/10/2025 Active PNV with [id number]-cocp-FF ( Vitamin Plus Low Iron) 27 mg iron- 1 mg tablet Take 1 tablet by mouth daily 30 tablet 11 04/28/2025 6 Active busPIRone (BUSPAR) 5 mg tabletIndicatio ns:Generalized Anxiety Disorder Take 1 tablet (5 mg total) by mouth 2 (two) times a day 60 tablet 11 05/13/2025 Active Active Problems Problem Noted Date Diagnosed Date Depression affecting 05/13/2025 Assessment & Plan (05/19/2025 1:49 PM CDT): Her medication were discussed. We discussed that this antidepressant is not thought to cause defects. Some people recommend stopping in the third trimester as the babies whose moms take it through delivery seem to be more jittery as if the were withdrawaling from it. This is typically managed by swaddling and comforting by the family. The hospital here has seen an increase in the number of babies whose mothers have been on certain antidepressants not want to take the first breaths. Because of that we now have respiratory therapy at all deliveries where antidepressants have been used, just as a precaution. She is going to continue on. Estimated Date of Delivery Comme nts Yes 12/20/2025 Based on last me nstrual period of 03/15/2025 Encounters Date Type Department Care Team Description 05/19/2025 10:00 AM CDT Ancillary Procedure Neal Franz [address] [place] [address] [address] [place] [address] Establish gestational age, ultrasound 05/19/2025 Results Follow-Up [facility] Care at [address] [address] Francy Peres MD US Ob Under 14 Weeks 05/16/2025 Telephone Neal Franz [address] [place] [address] [address] [place] [phone] Francy Peres MD Appointment Reminder Call 05/13/2025 2:00 PM CDT Office Visit Neal Franz [address] [place] [address] [address] [place] [phone] Francy Peres MD Depression affecting (Primary Dx) 05/01/2025 Telephone Neal Franz [address] [facility] [address] [place] [address] Francy Peres MD 04/30/2025 Telephone Nealcurly Franz [address] [place] [address] [address] [place] [phone] Francy Peres MD Appointment Reminder Call 04/28/2025 1:00 PM CDT Clinical Support Neal Franz [address] [place] [address] [address] [place] [phone] Missed period (Primary Dx); Establish gestational age, ultrasound; Encounter for anatomic survey 04/28/2025 Telephone Neal Franz [address] [place] [address] [address] [place] [phone] Lis Toledo MA OB from Last 3 Months Medical History Medical History Date Comments Mononucleosis 08/21/2021 DX'd Social History Tobacco Use Types Packs/Day Years Used Date Smoking Tobacco: Never Assessed PHQ-2 Answer Date Recorded PHQ-2 Total Score (If total score is 3 or more points, staff should administer the PHQ-9) 6 05/13/2025 PHQ-9 Answer Date Recorded PHQ-9 Total Score 19 05/13/2025 Washington Depression Scale Answer Date Recorded [place] Depression Scale Total 17 05/13/2025 The thought of harming myself has occurred to me . Never 05/13/2025 Estimated Date of Delivery Comme nts Yes 12/20/2025 Based on last me nstrual period of 03/15/2025 Sex and Gender Information Value Date Recorded Sex Assigned at Not on file Legal Sex Female 11:29 AM APPOINTMENT SPECIALIST Gender Identity Not on file Sexual Orientation Not on file Obstetrics History Para Term AB IAB SAB Ectopic Multiple Livin g Live Births 1 Date Outcome GA Total Labor Labor//3rd Weight Sex Type Anes PTL Carla A1 A5 Name Clin Current Summary Episode Dates Number of Fetuses Estimated Date of Delivery 04/28/2025 - Present (05/31/2025) 12/20/2025 (set by Ameena Muller MA on 05/19/2025 based on Last Menstrual Period on 03/15/2025) Dating Summary Based On JAMES [place] Diff Last Menstrual Period on 03/15/2025 12/20/2025 Working Ultrasound on 05/19/2025 12/27/2025 -1w0d GA:8w2d Vitals Pregravid Weight Height TWG (As of 05/31/2025) Pregrav id BMI 157.5 cm (5' 2) Notes Progress Notes - Office Visi t - 05/13/2025 - GA:8w3d 05/13/2025 - 8w3d - Francy Peres MD Images from the original note were not included. Air Traffic Control Supervisor Visit discuss meds (Patient is newly and here to discuss depression meds/Patient is on hydroxizine and only taking as needed. Patient is taking a 1/2 of a pill as needed. Patient wants to see about getting a different med/Dating usg scheduled 05/19/2025/New OB appt. 06/10/2025) Subjective: Cleo Mcpherson is a 20 y.o. year old female who presents for the above. At 8.4 weeks based on her lmp. Morning sickness is tolerable the unisom She was on atarax from pcp for her anxeity. Thought it was working well Went down to 1/2 tablet prn when she found out she was 16/05 on EDPS today. C Patient's last menstrual period was 03/15/2025. Menstrual History: Patient's last menstrual period was 03/15/2025. Sexual History: OB History 1 Para Term AB Living SAB IAB Ectopic Multiple Live Births # Outcome Date GA Labor/2nd Weight Sex Type Anes PTL Lv A1 A5 1 Current Objective: BP 100/66 (BP Location: Left arm, Patient Position: Sitting) Ht 157.5 cm (5' 2) Wt 120 lb (54.4 kg) LMP 03/15/2025 BMI 21.95 kg/m Physical Exam: wdwn female in nad OBGyn Exam Assessment and Plan: Diagnoses and all orders for this visit: Depression affecting (Primary) Assessment & Plan: Her medication were discussed. We discussed that this antidepressant is not thought to cause defects. Some people recommend stopping in the third trimester as the babies whose moms take it through delivery seem to be more jittery as if the were withdrawaling from it. This is typically managed by swaddling and comforting by the family. The hospital here has seen an increase in the number of babies whose mothers have been on certain antidepressants not want to take the first breaths. Because of that we now have respiratory therapy at all deliveries where antidepressants have been used, just as a precaution. She is going to continue on. Orders: - busPIRone (BUSPAR) 5 mg tablet; Take 1 tablet (5 mg total) by mouth 2 (two) times a day Return for Next scheduled follow up. Francy Peres MD 05/13/2025 Progress Notes - Clinical [place] pport - 04/28/2025 - GA:6w2d 04/28/2025 - 6w2d - Cintia Toledo MA Cleo was seen in office today for Nurse Visit for confirmation. Urine HCG positive. Pt is currently taking hydrOXYzine (ATARAX) 25 mg tablet 1 to 2 times a day. Pt states she has severe anxiety and usually takes medication 4 times a day but has cut down. Pt currently not taking . Script sent for pt. LMP 8-15-25. . Pt would like to see Dr. Peres dating Us and new ob appt. Made. Last Filed Vital Signs Vital Sign Reading Time Taken Comments Blood Pressure 100/66 05/13/2025 2:29 PM CDT Pulse - - Temperature - - Respiratory Rate - - Oxygen Saturation - - Inhaled Oxygen Concentration - - Weight 54.4 kg (120 lb) 05/13/2025 2:29 PM CDT Height 157.5 cm (5' 2) 05/13/2025 2:29 PM CDT Body Mass Index 21.95 05/13/2025 2:29 PM CDT Plan of Treatment Health Maintenance Due Date Last Done Comments Cervical Cancer Screening 2004 Hepatitis C Screening 2004 Meningococcal B Vaccine (1 o f 2 - Standard) 2020 Regular Well Visit/Exam 18-64 02/11/2022 Influenza Vaccine (#1) 2025 3, 05/09/2019, 06/19/2017, Additional history exists Depression Screening 05/13/2026 05/13/2025, 05/13/20 25 DTaP/Tdap/Td Vaccine (7 - Td or Tdap) 03/13/2034 03/13/2024, 09/23/2008, 03/21/2005, Additional history exists Hepatitis B Screening Completed 03/21/2005 , 2004, 2004 Pneumococcal vaccine <65 Completed 005, 2004, 2004, Additional history exists Varicella Vaccines Completed 09/23/2008, 03/21/2005 HPV Vaccines Completed 02/22/2018, 06/19/2017 Meningococcal Vaccine Completed 06/14/2021 Procedures Procedure Name Priority Date/Time Associated Diagnosis Comments US OB UNDER 14 WEEKS Schedule Routine, Read Routine (OP Routine) 05/19/2025 10:08 AM CDT Establish gestational age, ultrasound POCT HCG, URINE Routine 04/28/2025 1:45 PM CDT Missed period from Last 3 Months Results * US Ob Under 14 Weeks (05/19/2025 10:08 AM CDT) Anatomical Region Laterality Modality Abdomen N/A Ultrasound 05/19/2025 10:3 8 AM CDT Impressions 05/19/2025 1:06 PM CDT 1. There is a single intrauterine gestation at 8 weeks 2 days with EDC of 12/27/2025. This is incongruent with the patient's menstrual dates. 2. Normal pelvic anatomy. Narrative Procedure Note Francy Peres MD - 05/19/2025 IMPRESSION: 1. There is a single intrauterine gestation at 8 weeks 2 days with EDCof 12/27/2025. This is incongruent with the patient's menstrual dates. 2. Normal pelvic anatomy. Francy Peres MD IMG OB US PROCEDURE S Final Result * (ABNORMAL) POCT hCG, urine (04/28/2025 1:45 PM CDT) HCG, ur, POC Positive(A) Negative Lot Number [id number] QC Backgroud Clear Acceptable QC Control Line Acceptable Urine 04/28/2025 1:45 PM CDT Francy Peres MD POINT OF CARE TEST ORDERABLES Edited Result - Final from Last 3 Months Insurance AETNA [facility] Care Teams Applicator Sprayer Relationship Specialty Start Date End Date Evert De Luna MD [address] [place] [address] PCP - General Pediatrics 08/28/21
--- OUTSIDE RECORDS SUMMARY | 2025-05-31 11:03 | XMS_ITS | Clinical Summary ---
Author Organization [facility] Address [address] [place] [address] Care Team Providers Care Clinical Operations Manager Name Role Phone Lily Nunn PA-C Primary Care Provider [phone] Allergies No known active allergies Medications hydrOXYzine (ATARAX) 50 MG tablet Take 1 tablet (50 mg total) by mouth 4 (four) times daily as needed for Anxiety. Active Social History Tobacco Use Types Packs/Day Years Used Date Smoking Tobacco: Never Smokeless Tobacco: Never Tobacco Cessation:Counseling Given: Not Answered Comments No Sex and Gender Information Value Date Recorded Sex Assigned at Female 01/25/2025 9:44 AM CDT Legal Sex Female 1:51 PM CDT Gender Identity Not on file Sexual Orientation Not on file Last Filed Vital Signs Vital Sign Reading Time Taken Comments Blood Pressure 118/70 01/25/2025 11:21 AM CDT Pulse 73 01/25/2025 11:21 AM CDT Temperature 37 C (98.6 F) 01/25/2025 11:21 AM CDT Respiratory Rate 24 01/25/2025 11:21 AM CDT Oxygen Saturation 99% 01/25/2025 11:21 AM CDT Inhaled Oxygen Concentration - - Weight 58 kg (127 lb 13.9 oz) 01/25/2025 9:41 AM CDT Height 160 cm (5' 3) 01/25/2025 9:41 AM CDT Body Mass Index 22.65 01/25/2025 9:41 AM CDT Plan of Treatment Health Maintenance Due Date Last Done Comments Annual Physical 02/11/2007 Meningococcal B Vaccine (1 of 2 - Standard) 2020 Hepatitis C 02/11/2022 COVID-19 Vaccine (2024- season) 2025 Influenza Adult (#1) 2025 05/03/2023, 05/09/2019, 06/19/2017, Additional history exists Cervical Cancer Screening Pap Smear (Age 21 to 29) Every 3 Years 08/31/2025 08/31/2022 Cervical Cancer Screening 08/31/2025 DTaP, Tdap and Td Vaccines (6 - Td or Tdap) 03/13/2034 03/13/2024, 09/23/2008, 03/21/2005, Additional history exists Hepatitis B Vaccines Completed 03/21/2005, 2004, 2004 Pneumococcal Vaccine: Pediatrics (0 to 5 Years) and At-Risk Patients (6 to 49 Years) Completed 03/21/2005, 2004, 2004 HPV Vaccines Completed 02/22/2018, 06/19/2017 Meningococcal Vaccine Completed 06/14/2021 Hepatitis A Vaccines Aged Out No long er eligible based on patient's age to complete this topic RSV Immunizations Under 20 Months Aged Out No longer eligible based on patient's age to complete this topic Insurance AETNA MEDICAID Care Teams Clinical Operations Manager Relationship Specialty Start Date End Date Lily Nunn PA-C [address] [place] [phone] PCP - General PHYSICIAN FIRST SAMPLER 01/16/24
[2025-05-31 11:07] VITALS: BP 121/70; PULSE 103; RESP 17; TEMP 36.8; O2SAT 100
--- NOTE | 2025-05-31 11:30 | ED_ITS ---
HPI - Female Genitourinary General Chief complaint: Vaginal Bleeding Stated complaint: 11 weeks preg, vag bleeding Time Seen by Provider: 05/31/25 11:27 Source: patient Mode of arrival: ambulatory Limitations: no limitations History of Present Illness HPI Narrative: PATIENT WAS AT WORK, WENT TO THE BATHROOM UNNOTICED BROWNISH VAGINAL DISCHARGE IN HER UNDERWEAR. SHE DENIES ANY FEVER, CHILLS, NAUSEA, VOMITING OR ABDOMINAL PAIN. PATIENT IS TELLING ME THAT SHE IS 11 WEEKS , 1, PARA 0, 0 HER OBGYN AT [facility]. PATIENT VAPES, DENIES DRINKING OR USING DRUGS Related Data Home Medications ?Medication ?Instructions ?Recorded ?Confirmed ?Last Taken ?Type hydroxyzine HCl 25 mg tablet 25 mg PO TID PRN Anxiety 04/19/24 04/19/24 Unknown History medroxyprogesterone 150 mg/mL 150 mg IM [id number] 04/1904/19/24 Unknown History intramuscular syringe Allergies Allergy/AdvReac Type Severity Reaction Status Date / Time No Known Allergies Allergy Verified 05/31/25 11:02 Review of Systems 2 Review of Systems: All systems reviewed & are unremarkable except as noted in HPI and below PMFSH Past Medical History Medical History COVID-19 Anxiety and depression Surgical History Surgical History No significant past surgical history Social History Social History Substance use type: marijuana Gender identity (if verbalized by the patient): Female Exam 2 Narrative: GENERAL APPEARANCE: WELL-DEVELOPED, WELL-NOURISHED SKIN: NORMAL COLOR HEAD: NORMOCEPHALIC, NONTRAUMATIC EYES: CLEAR CONJUNCTIVA ENT: OROPHARYNX NORMAL, EARS NORMAL, NOSE NORMAL NECK: SUPPLE, NONTENDER CHEST AND RESPIRATORY: AIRWAY PATENT, NO RESPIRATORY DISTRESS, NO ACCESSORY MUSCLE USE HEART: REGULAR RATE/RHYTHM ABDOMEN: SOFT, NONTENDER, NO ORGANOMEGALY, QUIET BOWEL SOUNDS VASCULAR: NORMAL PERIPHERAL PULSES, NORMAL CAPILLARY REFILL. MUSCULOSKELETAL: NORMAL RANGE OF MOTION, NONTENDER BACK NEUROLOGIC: ALERT AND ORIENTED ?3, TECHNICAL PUBLICATIONS WRITER IS NORMAL TESTED, NO GROSS MOTOR DEFICIT : External Female Exam: normal external appearance Speculum Exam - Vagina: normal appearance of the vagina and vaginal bleeding (NO VAGINAL BLEEDING OR DISCHARGE) Speculum Exam - Cervix: normal appearance of the cervix Bimanual Exam- Adnexa, other: no masses Course Vital Signs Vital signs: Vital Signs Temperature 36.8 C 05/31/25 11:07 Pulse Rate 103 H 05/31/25 11:07 Respiratory Rate 17 05/31/25 11:07 Blood Pressure 121/70 05/31/25 11:07 Pulse Oximetry 100 05/31/25 11:07 Oxygen Delivery Room Air 05/31/25 11:07 Temperature 36.8 C 05/31/25 11:07 Pulse Rate 70 05/31/25 13:01 Respiratory Rate 15 05/31/25 13:01 Blood Pressure 113/69 05/31/25 13:01 Pulse Oximetry 100 05/31/25 13:01 Oxygen Delivery Room Air 05/31/25 11:07 MDM - Female Genitourinary MDM Narrative Medical decision making narrative: PATIENT PRESENTS WITH POSSIBLE VAGINAL BLEEDING, 11 WEEKS , NO ABDOMINAL PAIN VITAL SIGNS ARE STABLE PHYSICAL EXAMINATION IS UNREMARKABLE BLOOD WORKUP TODAY INCLUDES CBC, CMP, BETA HCG SHOWED NO SIGNIFICANT ABNORMALITIES AT PELVIC ULTRASOUND SHOWED INTRAUTERINE OTHERWISE NO ACUTE ABNORMALITY THE PT WAS DISCHARGED TO HOME.THE PT,S CONDITION UPON DISCHARGE WAS FAIR,EDUCATION WAS PROVIDED TO THE PT IN REFERENCE TO THE FINAL IMPRESSION,DISCHARGE STUDY RESULTS,TREATMENT,PROGNOSIS AND NEED FOR FOLLOW UP . Differential Diagnosis Differential diagnosis: Likely other (THREATENED ) Lab Data Attestation: I reviewed the patient's lab results. 05/31/25 11:31 05/31/25 11:31 Labs: Lab Results 05/31/25 Range/Units 11:31 WBC 7.4 (4.5-10.0) K/mm3 RBC 3.97 L (4.2-5.4) M/mm3 Hgb 12.2 (12.0-15.0) g/dL Hct 35.4 L (37.0-47.0) % MCV 89.2 (80-100) fl MCH 30.7 (26-34) pg MCHC 34.5 (32-36) g/dl RDW 12.5 (11.5-14.5) % Plt Count 283 (150-375) k/mm3 MPV 9.0 (7.4-10.4) fl Immature Gran % (Auto) 0.3 (0-0.5) % Neut % (Auto) 66.3 (45.5-73.1) % Lymph % (Auto) 26.1 (18.3-44.2) % Isabella % (Auto) 6.4 (2.6-8.5) % Eos % (Auto) 0.4 (0-4.4) % Baso % (Auto) 0.5 (0.2-1.2) % Lymph # (Auto) 1.92 (0.9-3.2) K/mm3 Isabella # (Auto) 0.5 (0.1-0.6) K/mm3 Eos # (Auto) 0.0 (0-0.3) K/mm3 Baso # (Auto) 0.0 (0.0-0.1) K/mm3 Abs Immat Gran (auto) 0.02 (0.00-0.031) K/mm3 Absolute Neuts (auto) 4.9 (1.3-6.7) K/mm3 Absolute Nucleated RBC 0.000 (0.0-0.012) K/mm3 Nucleated RBC % 0.0 (0.0-0.2) % PT 13.9 (11.1-14.7) Seconds INR 1.1 APTT 32.0 (22.3-36.8) Seconds Sodium 135 L (137-145) mmol/L Potassium 3.7 (3.4-5.0) mmol/L Chloride 105 (98-107) mmol/L Carbon Dioxide 21 L (22-30) mmol/L Anion Gap 9 (4-12) mmol/L BUN 5 L (7-17) mg/dL Creatinine 0.50 L (0.7-1.0) mg/dL Estim Creat Clear Calc 123 ml/min Estimated GFR > 60 (59 - ) Glucose 80 (65-110) mg/dL Calcium 10.0 (8.4-10.2) mg/dL Total Bilirubin 0.5 (0.2-1.3) mg/dL AST 25 (14-36) U/L ALT 36 H (6-35) U/L Alkaline Phosphatase 63 (38-126) U/L Total Protein 7.3 (6.3-8.2) g/dL Albumin 4.6 (3.5-5.1) g/dL Beta HCG, Quant 770103.00 mIU/ML Blood Type O Positive Antibody Screen Negative Screen Not Reportable Baby's Blood Type Not Reportable Baby's BERT Not Reportable Doses of RhIg Required 0 Imaging Data Radiologist's impression: Impressions Ultrasound 05/31/25 14:28 IMPRESSION: Single live intrauterine Critical Care Time Critical Care Time Critical Care Time: No Discharge Plan Discharge Clinical Impression: , threatened Patient Disposition: Home Condition: Stable Instructions: Threatened Miscarriage (ED) Additional Instructions: RETURN IF SYMPTOMS ARE WORSENING , CALL YOUR OBGYN FOR APPOINTMENT, TAKE TYLENOL NEEDED FOR ACHES AND PAIN, CONTINUE HOME MEDICATIONS. Patient Language: Anguill[place] Prescriptions: No Action hydroxyzine HCl 25 mg tablet 25 mg PO TID PRN (Reason: Anxiety) medroxyprogesterone 150 mg/mL syringe 150 mg IM [id number] sulfamethoxazole-trimethoprim [Bactrim DS] 800-160 mg tablet 1 tablet PO Q12H 3 Days Qty: 6 0RF Follow-up/Referrals: PHYSICIAN,HEALTH EVALUATOR [Primary Care Provider, Internal Medicine] Stand Alone Forms: Work/School Release IP
[2025-05-31 11:52] LABS: Hematocrit 35.4 % (37.0-47.0); Hemoglobin 12.2 g/dL (12.0-15.0); Immature Granulocyte Percent A 0.3 % (0-0.5); Lymphocytes Absolute Auto 1.92 K/mm3 (0.9-3.2); Mean Corpuscular HGB Conc 34.5 g/dl (32-36); Mean Corpuscular Hemoglobin 30.7 pg (26-34); Mean Corpuscular Volume 89.2 fl (80-100); Nucleated Red Blood Cells Absolute Auto 0.000 K/mm3 (0.0-0.012); Nucleated Red Blood Cells Perc 0.0 % (0.0-0.2); Platelet Count Result 283 k/mm3 (150-375); Red Blood Count 3.97 M/mm3 (4.2-5.4); White Blood Count 7.4 K/mm3 (4.5-10.0)
--- OUTSIDE RECORDS SUMMARY | 2025-05-31 11:53 | XMS_ITS | Clinical Summary ---
Author Organization [facility] ospital Address [address] [place] [address] Care Team Providers Care Postal Mail Carrier Name Role Phone Evert De Luna MD Primary Care Provider [phone] Allergies No known active allergies Medications hydrOXYzine (ATARAX) 25 mg tablet TAKE 1 TABLET BY MOUTH THREE TIMES A DAY NEEDED FOR ANXIETY 01/10/2025 Active PNV with [id number] ( Vitamin Plus Low Iron) 27 mg [...] 10:00 AM CDT Ancillary Procedure Neal Franz [address] [place] [address] [address] [place] [address] Establish gestational age, ultrasound 05/19/2025 Results Follow-Up [facility] Care at [address] [address] Francy Peres MD US Ob Under 14 Weeks 05/16/2025 Telephone Neal Franz [address] [place] [address] [address] [place] [phone] Francy Peres MD Appointment Reminder Call 05/13/2025 2:00 PM CDT Office Visit Neal Franz [address] [place] [address] [address] [place] [phone] Francy Peres MD Depression affecting (Primary Dx) 05/01/2025 Telephone Neal Franz [address] [facility] [address] [place] [phone] Francy Peres MD 04/30/2025 Telephone Nealcurly Franz [address] [place] [address] [address] [place] [phone] Francy Peres MD Appointment Reminder Call 04/28/2025 1:00 PM CDT Clinical Support Neal Franz [address] [place] [address] [address] [place] [phone] Missed period (Primary Dx); Establish gestational age, ultrasound; Encounter for anatomic survey 04/28/2025 Telephone Neal Franz [address] [place] [address] [address] [place] [phone] Lis Toledo MA OB from Last 3 Months Medical History Medical History Date Comments Mononucleosis 08/21/2021 DX'd Social History Tobacco Use Types Packs/Day Years Used Date Smoking Tobacco: Never Assessed PHQ-2 Answer Date Recorded PHQ-2 Total Score (If total score is 3 or more points, staff should administer the PHQ-9) 6 05/13/2025 PHQ-9 Answer Date Recorded PHQ-9 Total Score 19 05/13/2025 Geismar Depression Scale Answer Date Recorded Geismar Depression Scale Total 17 05/13/2025 The thought of harming myself has occurred to me . Never 05/13/2025 Estimated Date of Delivery Comme nts Yes 12/20/2025 Based on last me nstrual period of 03/15/2025 Sex and Gender Information Value Date Recorded Sex Assigned at Not on file Legal Sex Female 11:29 AM GANG PUSHER Gender Identity Not on file Sexual Orientation [...] from the original note were not included. Payroll Professional Visit discuss meds (Patient is newly and [...] Final from Last 3 Months Insurance AETNA [facility] Care Teams Postal Mail Carrier Relationship Specialty Start Date End Date Evert De Luna MD [address] [place] [address] PCP - General Pediatrics 08/28/21
--- OUTSIDE RECORDS SUMMARY | 2025-05-31 11:53 | XMS_ITS | Clinical Summary ---
Author Organization [facility] Address [address] [place] [address] Care Team Providers Care Refractive Surgeon Name Role Phone Lily Nunn PA-C Primary Care Provider [phone] Allergies No known active allergies Medications hydrOXYzine [...] this topic Insurance AETNA MEDICAID Care Teams Refractive Surgeon Relationship Specialty Start Date End Date Lily Nunn PA-C [address] [place] [phone] PCP - General PHYSICIAN SNATH HANDLE ASSEMBLER 01/16/24
[2025-05-31 12:01] LABS: Alanine Aminotransferase 36 U/L (6-35); Albumin Level 4.6 g/dL (3.5-5.1); Alkaline Phosphatase 63 U/L (38-126); Anion Gap 9 mmol/L (4-12); Aspartate Amino Transferase 25 U/L (14-36); Bilirubin,Total 0.5 mg/dL (0.2-1.3); Blood Urea Nitrogen 5 mg/dL (7-17); Calcium 10.0 mg/dL (8.4-10.2); Carbon Dioxide 21 mmol/L (22-30); Chloride 105 mmol/L (98-107); Estimated CRCL calculation 123 ml/min; Estimated Glomerular Filt Rate > 60; Glucose 80 mg/dL (65-110); Potassium 3.7 mmol/L (3.4-5.0); Sodium 135 mmol/L (137-145); Total Protein 7.3 g/dL (6.3-8.2)
[2025-05-31 12:14] LABS: INR 1.1; Prothrombin Time 13.9 Seconds (11.1-14.7)
[2025-05-31 12:15] LABS: Partial Thromboplastin Time 32.0 Seconds (22.3-36.8)
[2025-05-31 12:42] LABS: Beta HCG Quantitative 167250.00 mIU/ML
[2025-05-31 13:01] VITALS: BP 113/69; PULSE 70; RESP 15; O2SAT 100
== END 2025-05-31 15:24 | disposition home or self-care (01) ==
PROVIDERS: Emergency Medicine; Emergency Provider Emergency Medicine
DX: O20.0 Threatened abortion (principal); Z3A.11 11 weeks gestation of pregnancy
CPT/HCPCS: 36415; 76801; 80053; 84702; 85025; 85461; 85610; 85730; 86850; 86900; 86901; 99284